=== PATIENT | female | born 1990 | race African-American/Black ===

== ENCOUNTER 2024-06-07 12:08 | Emergency (ER) | payer MEDICAID ==
[~2024-06-07] VITALS: Ht 170.2 cm; Wt 88.6 kg
[2024-06-07 12:20] VITALS: TEMP 98
[2024-06-07] MEDS: ACETAMINOPHEN 325 MG TABLET PO ONE (12:49)
[2024-06-07] MEDS: IBUPROFEN 600 MG TABLET PO ONE (12:49)
[2024-06-07 14:47] VITALS: BP 126/63; PULSE 74; RESP 18; O2SAT 100
[2024-06-07] MEDS ORDERED: IBUP-1492 PO (14:47)
[2024-06-07] MEDS ORDERED: ACET-66 PO (14:47)
== END 2024-06-07 14:59 | disposition home or self-care (01) ==
LOC: EMS 12:08
DX: S00.83XA Contusion of other part of head, initial encounter (principal); S10.83XA Contusion of other specified part of neck, initial encounter; S40.811A Abrasion of right upper arm, initial encounter; Y04.8XXA Assault by other bodily force, initial encounter; Y93.89 Activity, other specified; Y92.89 Other specified places as the place of occurrence of the external cause; Y99.8 Other external cause status
CPT/HCPCS: 70450; 71101; 99284